=== PATIENT | male | born 1985 | race Caucasian/White ===

== ENCOUNTER 2016-12-30 22:34 | Emergency (ER) | payer MEDICAID ==
[~2016-12-30] VITALS: Ht 188 cm; Wt 110.5 kg
[2016-12-30 22:38] VITALS: Ht 188 cm; Wt 110.5 kg
[2016-12-31] MEDS ORDERED: AZITHROMYCIN 250 MG TAB PO ONE
[2016-12-31] MEDS ORDERED: NEOMYC/POLYMYX/HC 10 ML OTIC SUSP LEFT EAR ONE
[2016-12-31] MEDS ORDERED: HYDROCODONE/APAP (5/325) TAB PO ONE
[2016-12-31] MEDS ORDERED: IBUP-1542 PO (00:02)
[2016-12-31] MEDS ORDERED: NPH10OT LEFT EAR (00:02)
[2016-12-31] MEDS ORDERED: AZIT250T94 PO (00:02)
--- NOTE | 2016-12-31 00:31 | ERD ---
ER Documentation Chief Complaint Date/Time DATE: 12/31/16 TIME: 00:27 Chief Complaint left earache x 1 day, sore throat x 4 days HPI 31-year-old male patient with no significant past medical history presents to the ED complaining of left ear pain, sore throat, dry cough that started 4 days ago. Reports that he has tried taking DayQuil without relief of his symptoms. States that his left ear feels muffled and has decreased hearing. Denies any use of Q-tips. Denies any recent swimming. Denies any sick contacts. Denies any chest pain, shortness of breath, wheezing, abdominal pain, nausea, vomiting , diarrhea. ROS All systems reviewed and are negative except as per history of present illness. Medications Home Meds Active Scripts Azithromycin* (Zithromax*) 250 Mg Tablet, 250 MG PO .ZPACK DIRECTED, #6 TAB TAKE 500 MG (2 TABS) THE FIRST DAY THEN 250 MG (1 TAB) DAYS 2-5 Prov:JEANETTE BHAKTA PA-C 12/31/16 Neomycin/Polymyxin/Hydrocort* (Cortisporin* Otic) 10 Ml Susp, 4 DROP LEFT EAR QID for 7 Days, EA Prov:JEANETTE BHAKTA PA-C 12/31/16 Ibuprofen* (Motrin*) 600 Mg Tab, 600 MG PO Q6, #30 TAB Prov:JEANETTE BHAKTA PA-C 12/31/16 Allergies Allergies: Coded Allergies: Penicillins (Verified Allergy, Unknown, swelling, 12/30/16) PMhx/Soc Medical and Surgical Hx: pt denies Medical Hx, pt denies Surgical Hx Hx Alcohol Use: No Hx Substance Use: No Hx Tobacco Use: No Smoking Status: Never smoker Physical Exam Vitals Vital Signs Date Time Temp Pulse Resp B/P Pulse Ox O2 Delivery O2 Flow Rate FiO2 12/30/16 22:38 97.3 85 20 141/83 98 Physical Exam Const: Foe-gew-taeyeduod, well-nourished. In no acute distress. Head: Atraumatic, normocephalic Eyes: Normal Conjunctiva without injection. No purulent discharge. PERRL. EOMI ENT: Normal external ear. Ear canal without erythema. Right tympanic membrane pearly joseph without effusion or bulging. Left erythematous ear canal with decreased light reflex. Slight tenderness palpation of the left tragus. No tenderness palpation of the mastoid. Nasal canal clear with normal turbinates. Moist oropharynx without tonsillar exudates. Non-erythematous pharynx. Uvula midline. No drooling. No trismus. Neck: Full range of motion. No meningismus. No cervical lymphadenopathy. Resp: Clear to auscultation bilaterally. No wheezing, rhonchi, rales, or crackles. No accessory muscle use. No retractions. Cardio: Regular rate and rhythm. No murmurs, rubs or gallops. Abd: Soft, non tender, non distended. Normal bowel sounds. No palpable masses. No rebound tenderness. No guarding. Skin: No petechiae or rashes Back: No midline tenderness. No CVA tenderness. Ext: No cyanosis, or edema. Neur: Awake and alert. Psych: Normal Mood and Affect Results 24 hrs Current Medications Medications (Trade) Dose Ordered Sig/Marybel Route PRN Reason Start Time Stop Time Status Last Admin Dose Admin Acetaminophen/ Hydrocodone Bitart ([place] (5/325)) 1 tab ONCE ONCE PO 12/31/16 00:00 12/31/16 00:01 DC Neomycin/ Polymyxin/ Hydrocortisone (Cortisporin Otic Susp) 4 drop ONCE ONCE LEFT EAR 12/31/16 00:00 12/31/16 00:05 DC Azithromycin (Zithromax) 500 mg ONCE ONCE PO 12/31/16 00:00 12/31/16 00:05 DC Procedures/MDM 31-year-old male patient with no significant past medical history presents to the ED complaining of left earache that started yesterday associated with sore throat, dry cough that started 4 days ago. Patient is afebrile and nontoxic- appearing. Patient has normal vital signs. Patient was treated here in the ED with [place]. Patient's physical exam is consistent with otitis media and otitis externa. Patient was treated here in the ED with Cortisporin drops, [place], Zithromax with improvement of his symptoms. Patient does not have tenderness to palpation of mastoid. Low suspicion for mastoiditis. Patient's physical exam include lungs which were clear to auscultation and a normal pulse oximetry. Patient is speaking in full sentences. There is a low suspicion for pneumonia, epiglottitis, croup, viral/strep pharyngitis, sinusitis, peritonsillar abscess, retropharyngeal abscess, meningitis, sepsis, acute abdomen or other emergent conditions. Patient reports that he is allergic to penicillin, therefore Zithromax prescribed to patient for further treatment. Discharge medications: Ibuprofen, Cortisporin, Zithromax Follow up with primary care physician in 1-2 days. Instructed patient to return to the ED sooner for any worsening symptoms. Patient's questions were answered. Patient understood and agreed with discharge plan. Patient discharged stable. Departure Diagnosis: Primary Impression: Left ear pain Additional Impression: Sore throat Condition: Stable Patient Instructions: Otitis Media, Abx Tx (Adult), External Ear Infection ( Adult) Referrals: COMM[facility]ITY [facility] YOU HAVE RECEIVED A MEDICAL SCREENING EXAM AND THE RESULTS INDICATE THAT YOU DO NOT HAVE A CONDITION THAT REQUIRES URGENT TREATMENT IN THE EMERGENCY DEPARTMENT. FURTHER EVALUATION AND TREATMENT OF YOUR CONDITION CAN WAIT UNTIL YOU ARE SEEN IN YOUR DOCTORS OFFICE WITHIN THE NEXT 1-2 DAYS. IT IS YOUR RESPONSIBILITY TO MAKE AN APPOINTMENT FOR FOLOW-UP CARE. IF YOU HAVE A PRIMARY DOCTOR --you should call your primary doctor and schedule an appointment IF YOU DO NOT HAVE A PRIMARY DOCTOR YOU CAN CALL OUR PHYSICIAN REFERRAL HOTLINE AT IF YOU CAN NOT AFFORD TO SEE A PHYSICIAN YOU CAN CHOSE FROM THE FOLLOWING [facility] [address] [facility]. [facility] [address] [facility]. [facility] [address] [facility] [facility] [address] [facility] [facility] [address] [facility]. [facility]. [address] [facility]. [facility] YOU HAVE RECEIVED A MEDICAL SCREENING EXAM AND THE RESULTS INDICATE THAT YOU DO NOT HAVE A CONDITION THAT REQUIRES URGENT TREATMENT IN THE EMERGENCY DEPARTMENT. FURTHER EVALUATION AND TREATMENT OF YOUR CONDITION CAN WAIT UNTIL YOU ARE SEEN IN YOUR DOCTORS OFFICE WITHIN THE NEXT 1-2 DAYS. IT IS YOUR RESPONSIBILITY TO MAKE AN APPOINTMENT FOR FOLOW-UP CARE. IF YOU HAVE A PRIMARY DOCTOR --you should call your primary doctor and schedule and appointment IF YOU DO NOT HAVE A PRIMARY DOCTOR YOU CAN CALL OUR PHYSICIAN REFERRAL HOTLINE AT . IF YOU CAN NOT AFFORD TO SEE A PHYSICIAN YOU CAN CHOSE FROM THE FOLLOWING [facility]: [facility] [address] [place] [address] [facility] [address] [place] [address] [facility] [address] [place] [address] [facility] Additional Instructions: Call your primary care doctor TOMORROW for an appointment during the next 2 days for further evaluation from an ears, nose, throat specialist.See the doctor sooner or return here if your condition worsens before your appointment time - fever, nausea, vomiting, worsening cough, wheezing, shortness of breath. JEANETTE BHAKTA PA-C Dec 31, 2016 00:31
[2016-12-31 00:34] VITALS: BP 130/78; RESP 20; TEMP 98
== END 2016-12-31 00:41 | disposition home or self-care (01) ==
LOC: FTE 22:34
DX: H92.02 Otalgia, left ear (principal); J02.9 Acute pharyngitis, unspecified
CPT/HCPCS: Z7610 ×3; 99283

== ENCOUNTER 2017-01-05 21:34 | Emergency (ER) | payer MEDICAID ==
[~2017-01-05] VITALS: Ht 188 cm; Wt 111.0 kg
[~2017-01-05 21:34] MED LIST: AZIT250T94 PO; IBUP-1542 PO; NPH10OT LEFT EAR
[2017-01-05 22:02] VITALS: Ht 188 cm; Wt 111.0 kg
[2017-01-05] MEDS ORDERED: AMOX1TAB10 PO (22:48)
[2017-01-05] MEDS ORDERED: PSEU120T11 PO (22:48)
[2017-01-05] MEDS ORDERED: LORA10CA PO (22:48)
[2017-01-05] MEDS ORDERED: AMOXICILLIN/CLAV 875 MG TAB PO ONE (23:00)
--- NOTE | 2017-01-05 23:10 | ERD ---
ER Documentation Chief Complaint Date/Time DATE: 01/05/17 TIME: 23:07 Chief Complaint PT BACK DUE TO NOT BEING ABLE TO HEAR OUT OF LEFT EAR HPI 31 yo male comes to the ear with left inner ear pain, difficulty hearing for the past approximately 1 week. He states that he takes his, and has been taking ibuprofen there is no otorrhea, discharge, recent swimming. He states that the hearing goes out when he changes position of his head, such as when he leans forward. ROS All systems reviewed and are negative except as per history of present illness. Medications Home Meds Active Scripts Loratadine* (Claritin*) 10 Mg Capsule, 10 MG PO DAILY, #20 CAP Prov:GAYLE ESPINOSA PA-C 01/05/17 Pseudoephedrine Hcl (Sudafe 12-Hour) 120 Mg Tablet.er, 120 MG PO BID Y for CONGESTION, #6 TAB.SA Prov:GAYLE ESPINOSA PA-C 01/05/17 Amoxicillin/Potassium Clav (Amox-Clav 875-125 mg Tablet) 875-125 mg Tab, 1 TAB PO BID, #19 TAB Prov:GAYLE ESPINOSA PA-C 01/05/17 Azithromycin* (Zithromax*) 250 Mg Tablet, 250 MG PO .ZPACK DIRECTED, #6 TAB TAKE 500 MG (2 TABS) THE FIRST DAY THEN 250 MG (1 TAB) DAYS 2-5 Prov:JEANETTE BHAKTA PA-C 12/31/16 Neomycin/Polymyxin/Hydrocort* (Cortisporin* Otic) 10 Ml Susp, 4 DROP LEFT EAR QID for 7 Days, EA Prov:JEANETTE BHAKTA PA-C 12/31/16 Ibuprofen* (Motrin*) 600 Mg Tab, 600 MG PO Q6, #30 TAB Prov:JEANETTE BHAKTA PA-C 12/31/16 Allergies Allergies: Coded Allergies: Penicillins (Verified Allergy, Unknown, swelling, 01/05/17) PMhx/Soc History of Surgery: Yes (LT WRIST ) Anesthesia Reaction: No Hx Neurological Disorder: No Hx Respiratory Disorders: No Hx Cardiac Disorders: No Hx Psychiatric Problems: No Hx Miscellaneous Medical Probl: No Hx Alcohol Use: No Hx Substance Use: No Hx Tobacco Use: No Physical Exam Vitals Vital Signs Date Time Temp Pulse Resp B/P Pulse Ox O2 Delivery O2 Flow Rate FiO2 01/05/17 22:02 98.9 67 18 129/78 98 Physical Exam General: Well-developed, well-nourished. The patient appears in no acute distress. HEENT: Head is normocephalic, atraumatic. No scleral icterus. Oropharynx is clear. Left TM is erythematous, bulging, no perforation, right ear is normal Neck: Supple. Nontender. Lungs: Clear to auscultation. Normal air movement. Heart: Regular rate and rhythm. S1 and S2 are normal. No murmurs, gallops, or rubs. Abdomen: Nondistended. Extremities: No clubbing or cyanosis. Moving extremities x 4. No weakness. Neurologic: Alert and oriented 3. No focal deficits. Normal speech and gait. Skin: Normal turgor. No rash or lesions. Results 24 hrs Current Medications Medications (Trade) Dose Ordered Sig/Marybel Route PRN Reason Start Time Stop Time Status Last Admin Dose Admin Amoxicillin/ Clavulanate Potassium (Augmentin) 875 mg ONCE ONCE PO 01/05/17 23:00 01/05/17 23:01 DC Procedures/MDM MDM: 31-year-old male presents with evidence of otitis media to the left ear, no evidence of mastoiditis, there is external, tympanic membrane perforation. This patient states that he has taken amoxicillin, was prescribed to him 2 years ago by the dentist and he did not have any allergic reaction. He states that he may have an allergy to penicillin however he is not sure. He feels comfortable taking Augmentin at this time, he will also be given Sudafed, Claritin for the pressure-like feeling. His symptoms of difficulty hearing are likely due to eustachian tube dysfunction. Departure Diagnosis: Primary Impression: Left otitis media Condition: Good Patient Instructions: Otitis Media, Abx Tx (Adult) Additional Instructions: Call your primary care doctor TOMORROW for an appointment during the next 1-2 days.See the doctor sooner or return here if your condition worsens before your appointment time. GAYLE ESPINOSA PA-C Jan 05, 2017 23:10
== END 2017-01-05 23:27 | disposition home or self-care (01) ==
LOC: FTE 21:34
DX: H66.92 Otitis media, unspecified, left ear (principal)
CPT/HCPCS: 99283

== ENCOUNTER 2017-02-20 20:09 | Emergency (ER) | payer SELFPAY ==
[~2017-02-20] VITALS: Ht 177.8 cm; Wt 109.5 kg
[~2017-02-20 20:09] MED LIST changes: +AMOX1TAB10 PO; +LORA10CA PO; +PSEU120T11 PO
[2017-02-20 20:11] VITALS: Ht 177.8 cm; Wt 109.5 kg
== END 2017-02-20 22:40 | disposition left against medical advice (07) ==
LOC: FTE 20:09
DX: Z53.21 Procedure and treatment not carried out due to patient leaving prior to being seen by health care provider (principal)